=== PATIENT | female | born 1985 | race Caucasian/White ===

== ENCOUNTER 2018-05-15 12:26 | Outpatient (CLI) | payer OTHER ==
[2018-05-15 13:37] LABS: ALANINE AMINOTRANSFERASE 18 IU/L (13-69); ALBUMIN 3.6 g/dl (3.3-4.9); ALBUMIN/GLOBULIN RATIO 1.16; ALKALINE PHOSPHATASE 67 IU/L (42-121); ANION GAP 9 (5-13); ASPARTATE AMINO TRANSFERASE 23 IU/L (15-46); BILIRUBIN,INDIRECT 0.2 mg/dl (0-1.1); BILIRUBIN,TOTAL 0.2 mg/dl (0.2-1.3); BLOOD UREA NITROGEN 8 mg/dl (7-20); CALCIUM 8.9 mg/dl (8.4-10.2); CARBON DIOXIDE 22 mmol/L (21-31); CHLORIDE 105 mmol/L (97-110); CREATININE 0.51 mg/dl (0.44-1.00); Estimated GFR > 60 mL/min (>60); GLUCOSE 84 mg/dl (70-220); POTASSIUM 3.7 mmol/L (3.5-5.1); SODIUM 136 mmol/L (135-144); TOTAL PROTEIN 6.7 g/dl (6.1-8.1)
[2018-05-18 15:56] LABS: CHENODEOXYCHOLIC ACID 0.8 umol/L (< OR = 3.1); CHOLIC ACID <0.5 umol/L (< OR = 1.8); DEOXYCHOLIC ACID 2.8 umol/L (< OR = 2.4); TOTAL BILE ACIDS 3.7 umol/L (< OR = 6.8)
== END 2018-05-15 14:58 | disposition home or self-care (01) ==
LOC: OBT 12:26 → L-D 12:26 → OBT 14:58
DX: O26.892 Other specified pregnancy related conditions, second trimester (principal); L29.9 Pruritus, unspecified; Z3A.25 25 weeks gestation of pregnancy
CPT/HCPCS: 76815; 80053; 83789